=== PATIENT | female | born 1955 | race Two or more races ===

== ENCOUNTER 2022-05-15 19:59 | Inpatient (IN) | payer MEDICARE, OTHER ==
[~2022-05-15] VITALS: Ht 157.5 cm; Wt 49.9 kg
[2022-05-15 21:20] LABS: BASOPHILS % (AUTO) 0.4 % (0.0-2.0); EOSINOPHILS % (AUTO) 0.7 % (0.0-6.0); HEMATOCRIT 40 % (33-45); HEMOGLOBIN 12.8 g/dL (11.5-14.8); LYMPHOCYTES % (AUTO) 17.6 % (20.0-44.0); MEAN CORPUSCULAR HGB CONC 32 g/dl (31.0-36.0); MEAN CORPUSCULAR VOLUME 89 fL (82-100); MONOCYTES % (AUTO) 5.8 % (2.0-12.0); NEUTROPHILS % (AUTO) 75.5 % (43.0-81.0); PLATELET COUNT (AUTO) 232 K/uL (150-450); RED BLOOD CELL COUNT(AUTO) 4.42 MIL/uL (4.0-5.2); WHITE BLOOD COUNT (AUTO) 10.8 K/uL (4.3-11.0)
[2022-05-15 21:21] LABS: LYMPHOCYTES # (AUTO) 1.9 K/uL (0.8-4.8); MONOCYTES # (AUTO) 0.6 K/uL (0.1-1.30); NEUTROPHILS # (AUTO) 8.1 K/uL (1.8-8.9)
--- NOTE | 2022-05-15 21:23 | NUR ---
URINE COLLECTED AND SENT TO LAB
--- NOTE | 2022-05-15 21:28 | NUR ---
COVID SWAB COLLECTED AND SENT TO LAB
[2022-05-15 21:52] LABS: ALANINE AMINOTRANSFERASE 12 U/L (12-78); ALBUMIN 3.8 g/dL (3.4-5.0); ALKALINE PHOSPHATASE 75 U/L (46-116); ASPARTATE AMINOTRANSFERASE 21 U/L (15-37); BILIRUBIN,DIRECT 0.1 mg/dL (0.0-0.2); BILIRUBIN,TOTAL 0.2 mg/dL (0.2-1.0); CARBON DIOXIDE 27 mmol/L (21-32); CHLORIDE 106 mmol/L (98-107); CREATININE 0.8 mg/dL (0.6-1.3); GLUCOSE 96 mg/dL (74-106); POTASSIUM 3.8 mmol/L (3.5-5.1); SODIUM SERUM 141 mmol/L (136-145); TOTAL PROTEIN, SERUM 7.9 g/dL (6.4-8.2); UREA NITROGEN, BLOOD 16 mg/dL (7-18)
[2022-05-15 21:55] LABS: BILIRUBIN,URINE NEGATIVE (NEGATIVE); COLOR,URINE YELLOW (YELLOW); LEUKOCYTE ESTERASE ,URINE 3+ (NEGATIVE); NITRITE, URINE NEGATIVE (NEGATIVE); PROTEIN,URINE NEGATIVE (NEGATIVE); UGLUCOSE NEGATIVE (NEGATIVE); UROBILINOGEN,URINE 0.2 EU/dL (0.2)
[2022-05-15 22:02] LABS: ACETAMINOPHEN < 10 ug/ml (10-30); ALCOHOL, BLOOD < 3 mg/dL (0-0)
[2022-05-15 22:28] LABS: BACTERIA,URINE Many /HPF (None Seen); SQUAMOUS EPITHELIAL CELL,UR Many /HPF (None Seen); WBC,URINE 21-50 /HPF (0-3)
[2022-05-15] MEDS ORDERED: CIPROFLOXACIN HCL 250 MG TABLET PO ONE (23:00)
[2022-05-15] MEDS ORDERED: CIPROFLOXACIN HCL 500 MG TABLET ONE (23:11)
--- NOTE | 2022-05-16 00:55 | NUR ---
REPORT GIVEN TO RN
--- NOTE | 2022-05-16 01:10 | NUR ---
TRANSFERRED TO GPS IN STABLE CONDITION
[2022-05-16 01:25] VITALS: BP 133/66
--- NOTE | 2022-05-16 01:25 | NUR ---
RN NOTE: ADMITTED A 66-Y/O, FEMALE, FROM [facility]. ADMITTED ON A 5150 HOLD FOR GD. PER HOLD, PT ADMITTED DUE TO AGITATION, NON-COMPLIANT AND DISORGANIZED. PT IS NOT ABLE TO PROVIDE FOR HER FOOD, CORRECTION OR CLOTHING. UPON FACE TO FACE EVALUATION, PATIENT IS ALERT AND ORIENTED X2, PATIENT IS ANXIOUS, GUARDED, PREOCCUPIED TO HER OWN THOUGHTS. SKIN ASSESSMENT DONE. ALL BELONGINGS WERE SCREENED FOR CONTRABAND. PATIENT REFUSED TO SIGN ALL ADMITTING/CONSENT PAPER DUE TO CONFUSION. PATIENT'S RIGHTS WERE DISCUSSED AND BOOKLET WAS GIVEN. CONTACTED DR. PALMER AND HOSPITALIST DR. ESCALERA AND INFORMED THEM OF THE ADMISSION. BED IN LOWEST POSITION, LOCKED. SAFETY PRECAUTIONS MAINTAINED. WILL CONTINUE TO MONITOR Q15 MINS FOR MOOD, SAFETY AND BEHAVIOR. WILL INFORM PATIENT'S DAUGHTER IN THE MORNING REGARDING PT'S ADMISSION.
[2022-05-16] MEDS ORDERED: MAGNESIUM HYDROXIDE 30 ML UDC PO PRN ×2 (02:00→10:30)
[2022-05-16] MEDS ORDERED: MAG HYDROX/AL HYDROX/SIMETH 30 ML UDC PO PRN (02:00)
[2022-05-16] MEDS ORDERED: BLOOD SUGAR DIAGNOSTIC 1 EACH STRIP IN ONE (02:00)
[2022-05-16] MEDS ORDERED: TEMAZEPAM 7.5 MG CAPSULE PO PRN (02:00)
[2022-05-16] MEDS ORDERED: LORAZEPAM 0.5 MG TABLET PO PRN (02:00)
[2022-05-16] MEDS ORDERED: CYAN500L3 PO (05:01)
[2022-05-16] MEDS ORDERED: MELA5TAB PO (05:01)
[2022-05-16] MEDS ORDERED: NA P133E RC (05:01)
[2022-05-16] MEDS ORDERED: QUET25TA PO (05:01)
[2022-05-16] MEDS ORDERED: ASPI-1169 PO (05:01)
[2022-05-16] MEDS ORDERED: ATOR40TA PO (05:01)
--- NOTE | 2022-05-16 05:40 | NUR ---
RN NOTE NOTIFIED DR. ESCALERA REGARDING HOME MEDS TO BE RECONCILED.
[2022-05-16 08:00] VITALS: BP 139/74
[2022-05-16 08:02] LABS: CREATININE 0.7 mg/dL (0.6-1.3)
[2022-05-16] MEDS ORDERED: MAGN400O6 PO (08:09)
[2022-05-16] MEDS ORDERED: CYAN100096 PO (08:09)
--- NOTE | 2022-05-16 09:42 | NUR ---
CAROLE Initial Discharge Note: Patient currently resides at [address] [address]; ([phone]). CAROLE contacted Janette malloy to see if pt is welcomed back. She stated she would discuss with the treatment team and let this freelance writer know. CAROLE will contact pt's son Ken ([phone]) to discuss treatment/discharge plan. CAROLE will work with the MD, family, and treatment team to help coordinate appropriate discharge.
--- NOTE | 2022-05-16 09:42 | NUR ---
CAROLE Clinical Note: Pt placed on a 5150 hold for GD. Pt was agitated and non compliant at her facility [facility]. [place] [address]; ([phone]). CAROLE contacted Janette malloy to see if pt is welcomed back. She stated she would discuss with the treatment team and let this technical writer and editor know. CAROLE will contact pt's son Ken ([phone]) to discuss treatment/discharge plan. CAROLE will work with the MD, family, and treatment team to help coordinate appropriate discharge.
--- NOTE | 2022-05-16 09:43 | NUR ---
Treatment Plan: Pt refused to sign treatment plan and was suspicious. She stated "No, No".
--- NOTE | 2022-05-16 09:52 | NUR ---
Facility Contact: CAROLE contacted Alexa malloy from [facility] [address] [place] [address]; ([phone]) who stated that pt is welcomed back.
[2022-05-16] MEDS ORDERED: NA PHOS,M-B/NA PHOS,DI-BA 1 EA ENEMA RC PRN (10:30)
--- NOTE | 2022-05-16 13:07 | NUR ---
CAROLE Family Contact: SW attempted to contact pt's son Ken ([phone]) and left a detailed voicemail of pt's admission.
[2022-05-16 16:00] VITALS: BP 150/61
[2022-05-16] MEDS ORDERED: DIVALPROEX SODIUM 125 MG CAP.SPRINK PO SCH (17:00)
[2022-05-16 20:31] VITALS: BP 107/61
[2022-05-16] MEDS: DIVALPROEX SODIUM 125 MG CAP.SPRINK PO SCH (20:47)
--- NOTE | 2022-05-16 21:46 | NUR ---
Maryuri became very agitated, came out of her room and threw water at me. She was rediredted by Carl, she seemed upset. She was left to calm down. She eventually fell asleep around midnight. Will continue to monitor.
[2022-05-16] MEDS: QUETIAPINE FUMARATE 25 MG TABLET PO SCH (21:48)
[2022-05-16] MEDS: ATORVASTATIN 40 MG TABLET PO SCH (22:30)
[2022-05-17 07:13] LABS: CHOLESTEROL 211 mg/dL (<200); HDL CHOLESTEROL 63 mg/dL (40-60); LDL 138 mg/dL (0-99); TRIGLYCERIDES 134 mg/dL (30-150)
--- NOTE | 2022-05-17 07:20 | NUR ---
RN OPENING NOTE PATIENT IN HER ROOM, AWAKE, ORIENTED. SAFETY MEASURES IN PLACE, WILL CONTINUE TO MONITOR.
[2022-05-17 08:00] VITALS: BP 114/66
[2022-05-17] MEDS ORDERED: DIVALPROEX SODIUM 125 MG CAP.SPRINK PO SCH (09:00)
[2022-05-17] MEDS: DIVALPROEX SODIUM 125 MG CAP.SPRINK PO SCH ×2 (09:44→17:33)
[2022-05-17] MEDS: CYANOCOBALAMIN 500 MCG TABLET PO SCH (09:44)
[2022-05-17] MEDS: ASPIRIN 81 MG TAB.CHEW PO SCH (09:44)
[2022-05-17 16:00] VITALS: BP 105/60
--- NOTE | 2022-05-17 18:48 | NUR ---
RN CLOSING NOTE ALL NEEDS ATTENDED, MEDS ADMINISTERED, PT ALERT, COOPERATIVE. WILL ENDORSE TO THE EPILEPSY PHYSICIAN.
[2022-05-17 20:56] VITALS: BP 129/68
[2022-05-17] MEDS: ATORVASTATIN 40 MG TABLET PO SCH (21:20)
[2022-05-17] MEDS: QUETIAPINE FUMARATE 25 MG TABLET PO SCH (21:21)
[2022-05-18] MEDS: CYANOCOBALAMIN 500 MCG TABLET PO SCH ×2 (07:37→09:00)
[2022-05-18] MEDS: DIVALPROEX SODIUM 125 MG CAP.SPRINK PO SCH ×3 (07:37→17:00)
[2022-05-18] MEDS: ASPIRIN 81 MG TAB.CHEW PO SCH ×2 (07:37→09:00)
[2022-05-18 08:00] VITALS: BP 113/80
--- NOTE | 2022-05-18 09:18 | NUR ---
GPS/RN PT REFUSED AM MEDS OFFERED X3. COMMUNICATED WITH HELP OF BERNARD/ACTIVITY
[2022-05-18 16:00] VITALS: BP 119/63
--- NOTE | 2022-05-18 17:07 | NUR ---
GPS/RN PT REFUSED MEDS OFFERED X3
--- NOTE | 2022-05-18 19:30 | NUR ---
GPS RN NOTE, RECEIVED PATIENT AWAKE AND IN BED, NO S/S OR COMPLAINTS OF PAIN AT THIS TIME. PATIENT IS DISPLAYING NO S/S OF APPARENT DISTRESS AT THIS TIME. PATIENT BREATHING IS UNLABORED WITH EQUAL RISE AND FALL OF THE CHEST. PATIENT IS ALERT AND ORIENTED X 1 ON ROOM AIR WITH A SPO2 96%. PATIENT IS WELSH SPEAKING ONLY. PATIENT IS REFUSING MEDICATIONS, ISOLATIVE, CONFUSED, PARANOID, ARGUMENTATIVE, ANXIOUS, AND UNCOOPERATIVE. PATIENT DENIES SUICIDAL AND HOMICIDAL IDEATIONS AT THIS TIME. PATIENT ASSISTED WITH TURNING AND REPOSITIONING Q2HR AND PRN FOR COMFORT AND CIRCULATION. PATIENT HAS NO NEEDS AT THIS TIME. PATIENT EDUCATED ON THE USE OF THE CALL JONAS. PATIENT BED SIDE RAILS UP X 2 FOR SAFETY. PATIENT BED IS LOCKED AND LOW. WILL CONTINUE TO MONITOR THIS PATIENT Q15 MINUTES WITH THE HELP OF STAFF TO MAINTAIN SAFETY.
[2022-05-18 20:43] VITALS: BP 109/71
[2022-05-18] MEDS: QUETIAPINE FUMARATE 25 MG TABLET PO SCH (21:00)
[2022-05-18] MEDS: ATORVASTATIN 40 MG TABLET PO SCH (21:45)
--- NOTE | 2022-05-18 21:45 | NUR ---
GPS RN NOTE, PATIENT REFUSED SEROQUEL 25MG PO Q2100 AND LIPITOR 40MG PO HS. OFFERED BOTH MEDICATIONS THREE TIMES AND STILL PATIENT REFUSED STATING, " NO, NO, NO ". EDUCATED PATIENT ON THE RISKS AND BENEFITS OF TAKING AND REFUSING SEROQUEL AND LIPITOR. WILL CONTINUE TO MONITOR THIS PATIENT WITH THE HELP OF STAFF.
[2022-05-19 08:00] VITALS: BP 124/65
[2022-05-19] MEDS: CYANOCOBALAMIN 500 MCG TABLET PO SCH (08:31)
[2022-05-19] MEDS: ASPIRIN 81 MG TAB.CHEW PO SCH (08:31)
[2022-05-19] MEDS: DIVALPROEX SODIUM 125 MG CAP.SPRINK PO SCH ×2 (08:31→16:48)
--- NOTE | 2022-05-19 08:31 | NUR ---
GPS/RN PT REFUSED AM MEDS OFFERED X3. COMMUNICATED VIA YURY CAMPBELL
[2022-05-19 16:00] VITALS: BP 114/67
--- NOTE | 2022-05-19 16:48 | NUR ---
GPS/RN PT REFUSED 1700 MEDS OFFERED X3. COMMUNICATED VIA YURY CAMPBELL
--- NOTE | 2022-05-19 19:30 | NUR ---
GPS RN NOTES RECEIVED LAYING ON BED IN HER ROOM,SLEEPING WITH HEAD ON FOOT PART OF THE BED,A/O X2,SPEAK PERSIAN,AMBULATE WITH STEADY GAIT,COOPERATIVE TO CARE,ISOLATIVE AT TIMES.WILL CONTINUE TO MONITOR BEHAVIOR.
[2022-05-19 20:00] VITALS: BP 118/71
[2022-05-19 20:40] VITALS: BP 118/71
[2022-05-19] MEDS: QUETIAPINE FUMARATE 25 MG TABLET PO SCH (20:42)
[2022-05-19] MEDS: ATORVASTATIN 40 MG TABLET PO SCH (20:42)
--- NOTE | 2022-05-19 21:00 | NUR ---
GPS RN NOTES REFUSED SCHEDULED MEDICATION.OFFERED SLEEPING PILL BUR REFUSED
[2022-05-20 08:00] VITALS: BP 143/70
[2022-05-20] MEDS: DIVALPROEX SODIUM 125 MG CAP.SPRINK PO SCH ×2 (09:00→17:00)
[2022-05-20] MEDS: ASPIRIN 81 MG TAB.CHEW PO SCH (09:00)
[2022-05-20] MEDS: CYANOCOBALAMIN 500 MCG TABLET PO SCH (09:00)
[2022-05-20 16:00] VITALS: BP 118/63
[2022-05-20 20:26] VITALS: BP 130/41
[2022-05-20] MEDS: QUETIAPINE FUMARATE 25 MG TABLET PO SCH (21:00)
[2022-05-20] MEDS: ATORVASTATIN 40 MG TABLET PO SCH (21:01)
--- NOTE | 2022-05-20 21:43 | NUR ---
RN NOTE: MEDICATION REFUSAL PATIENT REFUSED SCHEDULED MEDS AT 2200 SEROQUEL AND LIPITOR. DESPITE OF EDUCATION PROVIDED REGARDING THE IMPORTANCE OF MEDICATION COMPLIANCE. PATIENT CONTINUED TO REFUSE. PATIENT STATED IN TURKISH, "SIN MEDICINA, THANK YOU". WILL CONTINUE TO MONITOR.
[2022-05-21 08:00] VITALS: BP 131/58
[2022-05-21] MEDS: CYANOCOBALAMIN 500 MCG TABLET PO SCH (08:35)
[2022-05-21] MEDS: DIVALPROEX SODIUM 125 MG CAP.SPRINK PO SCH ×3 (08:35→17:00)
[2022-05-21] MEDS: ASPIRIN 81 MG TAB.CHEW PO SCH (08:35)
--- NOTE | 2022-05-21 15:22 | NUR ---
RN-CO: SHUN PETITION FILED TODAY BY DR CHAUDHRY.
[2022-05-21 16:00] VITALS: BP 133/74
[2022-05-21 20:25] VITALS: BP 128/67
[2022-05-21] MEDS: QUETIAPINE FUMARATE 25 MG TABLET PO SCH (21:00)
[2022-05-21] MEDS: ATORVASTATIN 40 MG TABLET PO SCH (21:44)
--- NOTE | 2022-05-21 21:45 | NUR ---
REFUSED MEDICATION Patient Alert Oriented x2-3 Understand and speaks some Marshallese. Patient refused night medication Seroquel and Lipitor, education on medication indication and possible side effect, patient verbalized understanding but still refuses.
--- NOTE | 2022-05-22 06:31 | NUR ---
END OF SHIFT REPORT Patient in bed, sleeping arouses easily. Hours of sleep 7. Ambulatory, denies need of help. Non compliant with medication. Plan for continue inpatient MHU hospitalization, Behavior management per Psychiatry. Will endorse to oncoming RN.
[2022-05-22 07:26] LABS: BASOPHILS % (AUTO) 0.3 % (0.0-2.0); EOSINOPHILS % (AUTO) 1.7 % (0.0-6.0); HEMATOCRIT 39 % (33-45); HEMOGLOBIN 12.7 g/dL (11.5-14.8); LYMPHOCYTES # (AUTO) 1.9 K/uL (0.8-4.8); LYMPHOCYTES % (AUTO) 27.3 % (20.0-44.0); MEAN CORPUSCULAR HGB CONC 33 g/dl (31.0-36.0); MEAN CORPUSCULAR VOLUME 89 fL (82-100); MONOCYTES # (AUTO) 0.5 K/uL (0.1-1.30); MONOCYTES % (AUTO) 6.9 % (2.0-12.0); NEUTROPHILS # (AUTO) 4.4 K/uL (1.8-8.9); NEUTROPHILS % (AUTO) 63.8 % (43.0-81.0); PLATELET COUNT (AUTO) 238 K/uL (150-450); RED BLOOD CELL COUNT(AUTO) 4.34 MIL/uL (4.0-5.2); WHITE BLOOD COUNT (AUTO) 6.9 K/uL (4.3-11.0)
[2022-05-22 07:28] LABS: BILIRUBIN,TOTAL 0.1 mg/dL (0.2-1.0); CALCIUM, SERUM 8.6 mg/dL (8.5-10.1); CREATININE 0.8 mg/dL (0.6-1.3); POTASSIUM 4.9 mmol/L (3.5-5.1); TOTAL PROTEIN, SERUM 6.8 g/dL (6.4-8.2)
[2022-05-22 08:00] VITALS: BP 115/68
[2022-05-22] MEDS: CYANOCOBALAMIN 500 MCG TABLET PO SCH (09:00)
[2022-05-22] MEDS: ASPIRIN 81 MG TAB.CHEW PO SCH (09:00)
[2022-05-22] MEDS: DIVALPROEX SODIUM 125 MG CAP.SPRINK PO SCH ×2 (09:00→17:00)
--- NOTE | 2022-05-22 13:59 | NUR ---
Court Notification: SW contacted pt's daughter Zo ([phone]) to notify of 6080 hearing.
--- NOTE | 2022-05-22 14:00 | NUR ---
Court Hearing: Patient's court hearing for 1740 was today and it was upheld for GD.
[2022-05-22 16:29] VITALS: BP 118/75
--- NOTE | 2022-05-22 19:30 | NUR ---
RN NURSE RECEIVED PATIENT SLEEPS IN BED WITH BLANKET COVERING THE FACE. PUT BLANKET BACK UPON CALLING HER NAME. NO DISCOMFORT NOTED. ALL SAFETY MEASURES IN PLACE. BED LOCKED IN THE LOWEST POSITION. TABLE IN EASY REACH.SIDE RAILS UP TIMES 2. WILL CONTINUE TO MONITOR CLOSELY.
[2022-05-22] MEDS: NITROFURANTOIN/MONOHYDRATE MACROCRYSTALS 100 MG CAPSULE PO SCH (20:38)
[2022-05-22] MEDS: QUETIAPINE FUMARATE 25 MG TABLET PO SCH (20:39)
--- NOTE | 2022-05-22 20:40 | NUR ---
RN NOTES PATIENT REFUSED MACROBID AND SEROQUEL FOR 2100 STRONGLY. EDUCATE AND INFORMED THE PATIENT ABOUT BOTH MEDICATIONS. PATIENT STRONGLY REFUSED MEDICATIONS AND WITH POINTING HER INDEX FINGER TO THE DOOR STATED "LEAVE THE ROOM NOW" .
[2022-05-22 20:42] VITALS: BP 140/65
[2022-05-22] MEDS: ATORVASTATIN 40 MG TABLET PO SCH (21:25)
--- NOTE | 2022-05-22 22:00 | NUR ---
RN NOTES PATIENT REFUSED 2200 LIPITOR. EDUCATE AND INFORMED THE PATIENT THE USE OF MEDICATION, STILL REFUSING STRONGLY.
--- NOTE | 2022-05-23 06:44 | NUR ---
RN CLOSING NURSE PATIENT SLEEPS IN BED WITH BLANKET COVERING THE FACE. PUT BLANKET BACK UPON CALLING HER NAME. NO DISCOMFORT NOTED. NO PAIN NOTED. NO SOB NOTED. ALL SAFETY MEASURES IN PLACE. BED LOCKED IN THE LOWEST POSITION. TABLE IN EASY REACH.SIDE RAILS UP TIMES 2. WILL ENDORSE FOR MARGIE.
[2022-05-23 08:00] VITALS: BP 133/96
[2022-05-23] MEDS: ENSURE ENLIVE CHOC 237 ML CAN PO SCH (09:00)
[2022-05-23] MEDS: CYANOCOBALAMIN 500 MCG TABLET PO SCH (09:55)
[2022-05-23] MEDS: NITROFURANTOIN/MONOHYDRATE MACROCRYSTALS 100 MG CAPSULE PO SCH ×2 (09:55→18:58)
[2022-05-23] MEDS: ASPIRIN 81 MG TAB.CHEW PO SCH (09:55)
[2022-05-23] MEDS: DIVALPROEX SODIUM 125 MG CAP.SPRINK PO SCH ×2 (09:56→16:46)
--- NOTE | 2022-05-23 10:08 | NUR ---
RN NOTES RECEIVED PT IN BED ASLEEP , EASY TO AROUSE, ALL 4 WHEELS LOCKED AND ALL SAFETY MEASURES IN PLACE, PT REFUSED MEDICATIONS WHOLE PO THEREFORE MEDICATIONS CRUSHED AND MIXED WITH FOOD, EDUCATED ON IMPORTANCE OF TAKING MEDICATIONS AND REASONING WHY ALWAYS REFUSING HAS CONSEQUENCES, ATE THE FOOD WITH THE MEDICATIONS NO ASPIRATIONS AND WILL MONITOR FOR ANY SIDE EFFECTS WITH THE ABT OF THE MACROBID 100MG PO MED AT THIS TIME.
--- NOTE | 2022-05-23 13:58 | NUR ---
RN-CO: CALLED COURT 95 TO FIND OUT THE TIME OF RICHRISTIAN HEARING TOMM, OF THIS TIME IT IS CLOSE.
--- NOTE | 2022-05-23 14:05 | NUR ---
RN-CO: SPOKE WITH JASMEET AT COURT 95 THE RIESE HEARING FOR EMELYN WILL BE TOMORROW AT 1530. DR CHAUDHRY MADE AWARE.
[2022-05-23 16:00] VITALS: BP 128/71
[2022-05-23] MEDS: QUETIAPINE FUMARATE 25 MG TABLET PO SCH (18:58)
--- NOTE | 2022-05-23 19:08 | NUR ---
RN NOTES PT REFUSED ALL PO MEDICATIONS DURING DAY SHIFT UNLESS CRUSHED WITH EITHER MEAL FOOD OR THE VANILLA OR CHOCOLATE PUDDING, LAST TWO MEDICATIONS GIVEN CRUSHED WITH PUDDDING, NO ASPIRATIONS NOTED, NO SOB , NO C/O PAIN COMPLIANT WITH CARE AND EDUCATED IMPORTANCE OF MEDICATIONS AND THE SIDE EFFECTS TO EACH ONE, ALL NEEDS TENDED TO IN A TIMELY MANNER, BED LOW TO FLOOR, ALL WHEELS LOCKED.
--- NOTE | 2022-05-23 19:30 | NUR ---
Pt. was verbally endorsed by off going DANE MEHTA. Pt. received lying in bed. head at foot of bed with covers over her head. Inital assessment rendered. Bed in low position with brakes intact. Pt. resistant to interaction. Dismissive. Monitored for acute distress, VS , and acute mental status changes.
[2022-05-23 20:00] VITALS: BP 142/68
[2022-05-23 20:33] VITALS: BP 142/68
--- NOTE | 2022-05-23 22:00 | NUR ---
Pt. refused to take anticholersterol meds tonight. Said " no more medicine".
[2022-05-23] MEDS: ATORVASTATIN 40 MG TABLET PO SCH ×2 (23:20→23:23)
--- NOTE | 2022-05-24 07:28 | NUR ---
Endorsed to oncoming shift injury free. Bed in low position. 2 siderails up. brakes intact on bed.
[2022-05-24 08:00] VITALS: BP 105/65
[2022-05-24] MEDS: CYANOCOBALAMIN 500 MCG TABLET PO SCH (09:00)
[2022-05-24] MEDS: DIVALPROEX SODIUM 125 MG CAP.SPRINK PO SCH ×3 (09:00→17:32)
[2022-05-24] MEDS: ASPIRIN 81 MG TAB.CHEW PO SCH (09:00)
[2022-05-24] MEDS: NITROFURANTOIN/MONOHYDRATE MACROCRYSTALS 100 MG CAPSULE PO SCH ×2 (09:00→21:30)
[2022-05-24] MEDS: OLANZAPINE 2.5 MG TABLET PO SCH ×2 (13:00→21:30)
--- NOTE | 2022-05-24 13:30 | NUR ---
GPS RN DAYSHIFT UPDATE NOTE Patient refused all PO medications this morning stating that she is not sick and does not need medication. Dr. Gtz typed in order to give zyprexa 2mg IM if patient again refuses PO zyprexa. Patient again refused zyprexa PO even after explaining the new injection order to her. IM injection given per permission of court order approval (5250) of Dr. Gtz's order. Will continue to monitor patient for safey and care for patient per MD POC.
[2022-05-24] MEDS: OLANZAPINE 10 MG VIAL IM PRN ×2 (13:40→22:09)
[2022-05-24 16:00] VITALS: BP 99/71
[2022-05-24 20:26] VITALS: BP 118/62
--- NOTE | 2022-05-24 20:30 | NUR ---
GPS RN OPENING NOTE RECEIVED PATIENT IN BED RESTING; ALERT AND ORIENTED X 1 - 2; GREENLANDIC SPEAKING; STABLE ON ROOM AIR, BREATHING EVENLY AND NO RESPIRATORY DISTRESS NOTED; WITHDRAWN; NO COMPLAINTS OF PAIN AND DISCOMFORT AT THIS TIME; SAFETY MEASURES IMPLEMENTED, BED IN LOW AND LOCKED POSITION, SIDE RAILS UP X 2, CALL LIGHT WITHIN REACH; WILL CONTINUE TO MONITOR EVERY 15 MINS WITH THE HELP OF OTHER STAFF TO MAINTAIN SAFETY THROUGHOUT SHIFT
--- NOTE | 2022-05-24 23:30 | NUR ---
GPS RN NOTE PATIENT REFUSED HER ORAL MEDICATIONS, NOTED TO BE AGGRESSIVE AND COMBATIVE TOWARD STAFFS; PATIENT WAS CURSING, SPEAKING BAD LANGUAGES, EVEN THROWING WATER AND OTHER THINGS TO STAFFS; ADMINISTERED ZYPREXA IM WITH THE HELP OF CHARGE NURSE, SECURITY AND ANOTHER RN. REMOVED THINGS OUT OF THE ROOM NECESSARY FOR SAFETY; PATIENT IS NOW RELAXED AND SLEEPING IN BED; WILL CONTINUE TO MONITOR
--- NOTE | 2022-05-25 06:23 | NUR ---
GPS RN NOTE PATIENT SLEPT COMFORTABLY THE WHOLE NIGHT; NO COMPLAINTS OF PAIN AND DISCOMFORT AT THIS TIME; NO DISTRESS NOTED; MEDICALLY STABLE; WILL ENDORSE TO AM NURSE FOR MARGIE.
[2022-05-25 08:00] VITALS: BP 119/65
[2022-05-25] MEDS: CYANOCOBALAMIN 500 MCG TABLET PO SCH ×2 (08:46→09:00)
[2022-05-25] MEDS: ASPIRIN 81 MG TAB.CHEW PO SCH ×2 (08:46→09:00)
[2022-05-25] MEDS: NITROFURANTOIN/MONOHYDRATE MACROCRYSTALS 100 MG CAPSULE PO SCH ×3 (08:46→21:00)
[2022-05-25] MEDS: DIVALPROEX SODIUM 125 MG CAP.SPRINK PO SCH ×3 (08:46→17:00)
[2022-05-25] MEDS: ENSURE ENLIVE CHOC 237 ML CAN PO SCH (08:47)
[2022-05-25] MEDS: OLANZAPINE 2.5 MG TABLET PO SCH ×2 (09:00→21:00)
--- NOTE | 2022-05-25 09:07 | NUR ---
RN NOTES PATIENT REFUSED ALL MORNING MEDICATIONS. EDUCATE AND INFORMED THE PATIENT ABOUT RISKS. APPROACHED PATIENT 3X. PATIENT STRONGLY REFUSED MEDICATIONS. WILL MONITOR.
[2022-05-25] MEDS: OLANZAPINE 10 MG VIAL IM PRN ×2 (09:28→22:00)
--- NOTE | 2022-05-25 09:30 | NUR ---
RN NOTES ZYPREXIA IM ADMINNISTERED ORDERED, PATIENT REFUSED ZYPREXIA ORAL. WILL MONITOR.
[2022-05-25 16:00] VITALS: BP 114/63
--- NOTE | 2022-05-25 19:04 | NUR ---
RN NOTES PATIENT IN BED RESTING; ALERT AND ORIENTED X 1 - 2; UKRAINIAN SPEAKING; STABLE ON ROOM AIR, BREATHING EVENLY AND NO RESPIRATORY DISTRESS NOTED; WITHDRAWN; NO COMPLAINTS OF PAIN AND DISCOMFORT AT THIS TIME; SAFETY MEASURES IMPLEMENTED, BED IN LOW AND LOCKED POSITION, SIDE RAILS UP X 2, CALL LIGHT WITHIN REACH; WILL ENDORSED TO NIGHT NURSE.
[2022-05-25 20:42] VITALS: BP 116/64
[2022-05-25] MEDS: ATORVASTATIN 40 MG TABLET PO SCH (21:50)
--- NOTE | 2022-05-25 21:51 | NUR ---
RN notes Pt refuses pm meds. Explained risks and benefits. Pt keep refusing meds. Pt informed that Pt doesn't take any meds, Medications makes her upset stomach. Pt is aware that Pt is on [place]. Charge nurse is aware and informed.
--- NOTE | 2022-05-25 22:00 | NUR ---
RN notes Pt refuses oral zyprexa. Explained risks and benefits. Pt keep refusing. Pt is aware and informed about zyprexa IM inj. Administered zyprexa 5 mg/IM with a charge nurse at the bedside. Will continue to monitor.
[2022-05-26 08:00] VITALS: BP 120/58
[2022-05-26] MEDS: ASPIRIN 81 MG TAB.CHEW PO SCH (09:00)
[2022-05-26] MEDS: NITROFURANTOIN/MONOHYDRATE MACROCRYSTALS 100 MG CAPSULE PO SCH ×2 (09:00→21:00)
[2022-05-26] MEDS: OLANZAPINE 2.5 MG TABLET PO SCH ×2 (09:00→21:00)
[2022-05-26] MEDS: CYANOCOBALAMIN 500 MCG TABLET PO SCH (09:00)
[2022-05-26] MEDS: DIVALPROEX SODIUM 125 MG CAP.SPRINK PO SCH ×2 (09:00→16:37)
[2022-05-26] MEDS: ENSURE ENLIVE CHOC 237 ML CAN PO SCH (09:00)
[2022-05-26] MEDS: OLANZAPINE 10 MG VIAL IM PRN ×2 (10:11→22:10)
--- NOTE | 2022-05-26 10:24 | NUR ---
RN-NOTES PATIENT REFUSED ALL 0900AM MP.O MEDICATIONS INCLUDING ZYPREXA 5MG P.O .EXPLAINED RISK AND BENEFITS BUT PATIENT GETS AGITATED ,ARGUMENTATIVE AND ANGRY. ZYPREXA 5MG IM GIVEN ORDERED.
[2022-05-26 16:00] VITALS: BP 125/60
--- NOTE | 2022-05-26 16:38 | NUR ---
RN-NOTES PATIENT REFUSED DEPAKOTE 125MG P.O .EXPLAINED RISK AND BENEFITS BUT PATIENT GETS AGITATED ,ARGUMENTATIVE AND ANGRY.
--- NOTE | 2022-05-26 17:33 | NUR ---
RN-NOTES PATIENT IS VISIBLE IN THE UNIT A/O X2 GUARDED NO ACUTE DISTRESS NOTED. PATIENT REFUSED ALL P.O MEDICATIONS DESPITE ENCOURAGEMENT.IM MEDICATION GIVEN PATIENT IS RIESED. NOTED WITH EASILY ANGRY,ARGUMENTATIVE GUARDED,MINIMAL INTERACTIONS WITH STAFF.NEEDS MINIMAL ASSIST WITH ADL'S. ALL NEEDS ATTENDED AND ANTICIPATED. PATIENT ABLE TO AMBULATE WITH STEADY GAIT.WILL CONT. MONITORING FOR SAFETY AND BEHAVIOR.WILL ENDORSE TO INCOMING NURSE FOR THE CONTINUITY OF CARE.
[2022-05-26 21:14] VITALS: BP 126/52
[2022-05-26] MEDS: ATORVASTATIN 40 MG TABLET PO SCH (22:00)
--- NOTE | 2022-05-26 22:10 | NUR ---
RN notes Pt is refusing pm med and oral zyprexa. Explained risks and benefits. Pt keep refusing and agitated easily. Administered zyprexa IM inj as ordered. Charge nurse at the bedside. Safety precautions is maintained. Will continue to monitor.
[2022-05-27 08:00] VITALS: BP 114/50
[2022-05-27] MEDS: OLANZAPINE 2.5 MG TABLET PO SCH ×5 (08:49→17:00)
[2022-05-27] MEDS: CYANOCOBALAMIN 500 MCG TABLET PO SCH (09:00)
[2022-05-27] MEDS: ENSURE ENLIVE CHOC 237 ML CAN PO SCH (09:00)
[2022-05-27] MEDS: DIVALPROEX SODIUM 125 MG CAP.SPRINK PO SCH ×2 (09:00→17:00)
[2022-05-27] MEDS: ASPIRIN 81 MG TAB.CHEW PO SCH (09:00)
[2022-05-27] MEDS: NITROFURANTOIN/MONOHYDRATE MACROCRYSTALS 100 MG CAPSULE PO SCH ×2 (09:00→21:00)
--- NOTE | 2022-05-27 09:25 | NUR ---
GPS/RN PT REFUSED PO MEDS TODAY OFFERED X3. ZYPREXA IM ADMINISTERED ORDERED.
[2022-05-27] MEDS: OLANZAPINE 10 MG VIAL IM PRN ×3 (09:46→17:20)
--- NOTE | 2022-05-27 10:50 | NUR ---
RN- NOTES OLANZAPINE 5MG HELD DUE TO PATIENT REFUSAL OF PREVIOUS 0900 MEDICATION AND ZYPREXA INJECTION PER RIESE INSTRUCTIONS GIVEN.
--- NOTE | 2022-05-27 13:09 | NUR ---
RN- NOTES IM ZYPREXA 5MG ADMINISTERED DUE TO PATIENT REFUSING OLANZAPINE P.O X3 TIME AFTER EXPLANATION AND EDUCATION.
[2022-05-27 16:00] VITALS: BP 141/61
--- NOTE | 2022-05-27 17:16 | NUR ---
RN- NOTES IM ZYPREXA 5MG ADMINISTERED DUE TO PATIENT REFUSING OLANZAPINE P.O X3 TIME AFTER EXPLANATION AND EDUCATION.
--- NOTE | 2022-05-27 18:23 | NUR ---
RN- CLOSING NOTES PATIENT AWAKE IN BED, WORKING ON CROSSWORD PUZZLES. A/O X2. PT. IS GUARDED, ANXIOUS, ISOLATIVE, AND EASILY AGITATED. PATIENT REFUSED ALL ORAL MEDICATIONS THROUGHOUT THE SHIFT. IM ZYPREXA ADMINISTERED AT 0900, 1300, 1700 PER RIESE ORDER. PATIENT IS AMBULATORY WITH NO ASSISTANCE AND DENIES SI/HI AT THIS TIME. WILL CONTINUE TO MONITOR Q 15 MINUTES FOR SAFETY AND BEHAVIOR.
[2022-05-27 20:30] VITALS: BP 105/60
[2022-05-27] MEDS: ATORVASTATIN 40 MG TABLET PO SCH (21:52)
--- NOTE | 2022-05-28 07:24 | NUR ---
GPS RN OPENING NOTES: RECEIVED PATIENT IN BED, ASLEEP BUT EASILY AROUSES TO VOICE. NO RESPIRATORY DISTRESS NOTED, BREATHING EVEN AND UNLABORED. ON RA TOLERATING WELL. PATIENT IS ALERT, ORIENTED X 2, OCCITAN SPEAKING. PATIENT IS GUARDED, EASILY IRRITATED, ISOLATIVE. PATIENT DENIES SI/HI AT THIS TIME. ALL SAFETY MEASURES IN PLACE, WILL CONTINUE TO MONITOR Q 15 MINUTES FOR SAFETY AND BEHAVIOR.
[2022-05-28 08:00] VITALS: BP 115/56
[2022-05-28] MEDS: CYANOCOBALAMIN 500 MCG TABLET PO SCH (09:00)
[2022-05-28] MEDS: ASPIRIN 81 MG TAB.CHEW PO SCH (09:00)
[2022-05-28] MEDS: ENSURE ENLIVE CHOC 237 ML CAN PO SCH (09:00)
[2022-05-28] MEDS: OLANZAPINE 2.5 MG TABLET PO SCH ×3 (09:00→17:00)
[2022-05-28] MEDS: DIVALPROEX SODIUM 125 MG CAP.SPRINK PO SCH ×2 (09:00→17:00)
[2022-05-28] MEDS: NITROFURANTOIN/MONOHYDRATE MACROCRYSTALS 100 MG CAPSULE PO SCH ×2 (09:00→22:12)
[2022-05-28] MEDS: OLANZAPINE 10 MG VIAL IM PRN ×3 (10:17→18:08)
[2022-05-28 16:00] VITALS: BP 125/58
--- NOTE | 2022-05-28 18:24 | NUR ---
GPS RN CLOSING NOTES: PATIENT IN BED, AWAKE AND IS DOING HER WORD PUZZLES. NO RESPIRATORY DISTRESS NOTED THROUGHOUT SHIFT. ON RA TOLERATING WELL. PATIENT IS ALERT, ORIENTED X 2, ROMANSH SPEAKING. PATIENT REMAINS GUARDED, EASILY IRRITATED, ISOLATIVE AND REMAINS IN THE ROOM MOST OF THE TIME. PATIENT REFUSED ALL HER PO MEDICATIONS AND ADMINISTERED ZYPREXA IM TID ORDERED DUE TO PATIENT BEING ON RIESE. PATIENT WAS COOPERATIVE WITH THE ZYPREXA ADMINISTERED VIA IM. PATIENT DENIES SI/HI AT THIS TIME. ALL SAFETY MEASURES IMPLEMENTED, WILL ENDORSE TO INCOMING NURSE FOR CONTINUITY OF CARE.
[2022-05-28 20:24] VITALS: BP 127/65
[2022-05-28] MEDS: ATORVASTATIN 40 MG TABLET PO SCH (22:12)
[2022-05-29 08:00] VITALS: BP 101/49
[2022-05-29] MEDS: OLANZAPINE 2.5 MG TABLET PO SCH ×4 (08:36→17:00)
[2022-05-29] MEDS: ASPIRIN 81 MG TAB.CHEW PO SCH ×2 (08:36→09:00)
[2022-05-29] MEDS: DIVALPROEX SODIUM 125 MG CAP.SPRINK PO SCH ×3 (08:36→17:00)
[2022-05-29] MEDS: CYANOCOBALAMIN 500 MCG TABLET PO SCH ×2 (08:36→09:00)
[2022-05-29] MEDS: NITROFURANTOIN/MONOHYDRATE MACROCRYSTALS 100 MG CAPSULE PO SCH ×3 (08:39→21:00)
[2022-05-29] MEDS: ENSURE ENLIVE CHOC 237 ML CAN PO SCH (09:14)
[2022-05-29] MEDS: OLANZAPINE 10 MG VIAL IM PRN ×3 (09:29→17:23)
--- NOTE | 2022-05-29 13:34 | NUR ---
WAGON WINDER NOTES: PATIENT IN BED, AWAKE AND IS DOING WORD PUZZLES. NO RESPIRATORY DISTRESS NOTED THROUGHOUT SHIFT. ON ROOM AIR TOLERATING WELL. PATIENT IS ALERT, ORIENTED X 2, SETS[place] SPEAKING. PATIENT REMAINS GUARDED, EASILY IRRITATED, ISOLATIVE AND REMAINS IN THE ROOM MOST OF THE TIME. PATIENT REFUSED ALL HER PO MEDICATIONS AND ADMINISTERED ZYPREXA IM TID ORDERED DUE TO PATIENT BEING ON RIESE. PATIENT WAS COOPERATIVE WITH THE ZYPREXA ADMINISTERED VIA IM. PATIENT DENIES SI/HI AT THIS TIME. ALL SAFETY MEASURES IMPLEMENTED, WILL CONTINUE TO MONITOR
[2022-05-29 16:00] VITALS: BP 114/56
[2022-05-29 20:29] VITALS: BP 116/59
[2022-05-29] MEDS: ATORVASTATIN 40 MG TABLET PO SCH (21:26)
--- NOTE | 2022-05-30 05:51 | NUR ---
END OF SHIFT REPORT Patient in bed, sleeping arouses easily. Denies bladder discomfort, On Abx for UTI. Afebrile. Patient non compliant with treatment and medication. Calm, no agitated behavior during the shift. Still refuses medication, patient is Riesed. On Zyprexa IM PRN. Fall precaution maintained. Plan for Continue inpatient MHU hospitalization. Behavior management per psychiatry. Will endorse to oncoming RN.
[2022-05-30 07:14] LABS: BASOPHILS % (AUTO) 0.6 % (0.0-2.0); EOSINOPHILS % (AUTO) 2.2 % (0.0-6.0); HEMATOCRIT 36 % (33-45); HEMOGLOBIN 11.6 g/dL (11.5-14.8); LYMPHOCYTES # (AUTO) 2.6 K/uL (0.8-4.8); LYMPHOCYTES % (AUTO) 36.6 % (20.0-44.0); MEAN CORPUSCULAR HGB CONC 32 g/dl (31.0-36.0); MEAN CORPUSCULAR VOLUME 89 fL (82-100); MONOCYTES # (AUTO) 0.5 K/uL (0.1-1.30); MONOCYTES % (AUTO) 7.2 % (2.0-12.0); NEUTROPHILS # (AUTO) 3.8 K/uL (1.8-8.9); NEUTROPHILS % (AUTO) 53.4 % (43.0-81.0); PLATELET COUNT (AUTO) 254 K/uL (150-450); RED BLOOD CELL COUNT(AUTO) 4.04 MIL/uL (4.0-5.2)
[2022-05-30 08:00] VITALS: BP 142/68
[2022-05-30 08:01] LABS: POTASSIUM 4.2 mmol/L (3.5-5.1)
[2022-05-30 08:02] LABS: BILIRUBIN,TOTAL 0.2 mg/dL (0.2-1.0); CALCIUM, SERUM 8.7 mg/dL (8.5-10.1); CREATININE 0.7 mg/dL (0.6-1.3); TOTAL PROTEIN, SERUM 6.6 g/dL (6.4-8.2)
[2022-05-30] MEDS: NITROFURANTOIN/MONOHYDRATE MACROCRYSTALS 100 MG CAPSULE PO SCH ×2 (09:00→21:00)
[2022-05-30] MEDS: DIVALPROEX SODIUM 125 MG CAP.SPRINK PO SCH ×3 (09:00→17:00)
[2022-05-30] MEDS: ENSURE ENLIVE CHOC 237 ML CAN PO SCH (09:00)
[2022-05-30] MEDS: OLANZAPINE 2.5 MG TABLET PO SCH (09:00)
[2022-05-30] MEDS: CYANOCOBALAMIN 500 MCG TABLET PO SCH (09:00)
[2022-05-30] MEDS: ASPIRIN 81 MG TAB.CHEW PO SCH (09:00)
[2022-05-30] MEDS: risperiDONE-M 0.5 MG TAB.RAPDIS PO SCH ×2 (13:00→17:00)
[2022-05-30] MEDS: OLANZAPINE 10 MG VIAL IM PRN ×2 (13:51→17:16)
--- NOTE | 2022-05-30 13:52 | NUR ---
Patient refused oral medications. Zyprexia, 1 ml, IV, TID was given as prescribed Addendum: 05/30/22 at 1847 by ALEKSEY PA JR, RN CORRECTION ON CHARTING: Zyprexia 0.5 mg/ML was given and not 1 mL, IV TID STATED ABOVEl
[2022-05-30 16:00] VITALS: BP 108/68
--- NOTE | 2022-05-30 17:16 | NUR ---
Zyprexia 0.5 mg/ML was given, IV, TID
[2022-05-30 20:44] VITALS: BP 110/53
[2022-05-30] MEDS: ATORVASTATIN 40 MG TABLET PO SCH (22:00)
--- NOTE | 2022-05-30 22:33 | NUR ---
RN NOTE PT REFUSED MEDICATIONS SCHEDULED FOR THE NIGHT: MACROBID 100 MG, LIPITOR 40 MG. EXPLAINED RISK/BENEFITS, PT CONTINUED TO REFUSE, STATES "NO MEDICINA".
--- NOTE | 2022-05-31 07:39 | NUR ---
GPS RN CLOSING NOTES PT IN BED AT THIS TIME. A/O X2, NIGERIEN SPEAKING, COOPERATIVE BUT NON COMPLIANT WITH MEDS LAST NIGHT. CALM AND STAYED IN BEDROOM ALL NIGHT. DENIES SI/HI. WILL ENDORSE MARGIE TO DAY SHIFT NURSE.
[2022-05-31 08:00] VITALS: BP 119/63
[2022-05-31] MEDS: risperiDONE-M 0.5 MG TAB.RAPDIS PO SCH ×3 (09:00→17:00)
[2022-05-31] MEDS: DIVALPROEX SODIUM 125 MG CAP.SPRINK PO SCH ×3 (09:00→17:00)
[2022-05-31] MEDS: ASPIRIN 81 MG TAB.CHEW PO SCH (09:00)
[2022-05-31] MEDS: CYANOCOBALAMIN 500 MCG TABLET PO SCH (09:00)
[2022-05-31] MEDS: NITROFURANTOIN/MONOHYDRATE MACROCRYSTALS 100 MG CAPSULE PO SCH ×3 (09:00→21:03)
[2022-05-31] MEDS: ENSURE ENLIVE CHOC 237 ML CAN PO SCH (09:01)
[2022-05-31] MEDS: OLANZAPINE 10 MG VIAL IM PRN ×3 (09:03→17:07)
[2022-05-31 16:00] VITALS: BP 103/62
--- NOTE | 2022-05-31 18:22 | NUR ---
IRRIGATOR VALVE PIPE NOTE PATIENT REFUSED ALL MEDICATIONS. PATIENT IS RIESED AND WAS GIVEN ZYPREXA TID PER EACH REFUSAL OF RISPERDAL- M. PATIENT AOX2, AND PARTICIPATED IN ACTIVITY ROOM DOING WORD SEARCH PUZZLES AND WATCHING TV. PATIENT KEEPS TO HERSELF AND AVOIDS INTERACTION IF POSSIBLE.
[2022-05-31 20:34] VITALS: BP 104/47
[2022-05-31] MEDS: ATORVASTATIN 40 MG TABLET PO SCH ×2 (21:03→22:00)
--- NOTE | 2022-05-31 21:39 | NUR ---
RN NOTES; PATIENT REFUSED 2100-MACROBID 100MG AND 2200-ATORVASTATIN 40MG,EXPLAINED BENEFITS X3,PT STILL REFUSED.
[2022-06-01 08:00] VITALS: BP 124/63
[2022-06-01] MEDS: ASPIRIN 81 MG TAB.CHEW PO SCH (08:20)
[2022-06-01] MEDS: ENSURE ENLIVE CHOC 237 ML CAN PO SCH (08:20)
[2022-06-01] MEDS: NITROFURANTOIN/MONOHYDRATE MACROCRYSTALS 100 MG CAPSULE PO SCH ×2 (08:20→21:00)
[2022-06-01] MEDS: DIVALPROEX SODIUM 125 MG CAP.SPRINK PO SCH ×3 (08:20→16:32)
[2022-06-01] MEDS: CYANOCOBALAMIN 500 MCG TABLET PO SCH (08:21)
[2022-06-01] MEDS: risperiDONE-M 0.5 MG TAB.RAPDIS PO SCH (08:21)
--- NOTE | 2022-06-01 08:27 | NUR ---
RN- NOTES PATIENT REFUSED ALL P.O 0900 MEDICATIONS, EDUCATED ON RISKS/BENEFITS, PATIENT CONTINUES TO REFUSE.
[2022-06-01] MEDS ORDERED: MISCELLANEOUS MED 1 EA EA XX ONE (09:30)
[2022-06-01] MEDS ORDERED: PALIPERIDONE PALMITATE 156 MG/ML SYRINGE IM ONE (11:00)
[2022-06-01 16:00] VITALS: BP 119/53
--- NOTE | 2022-06-01 18:11 | NUR ---
RN- CLOSING NOTES PATIENT IS RESTING IN BED, BREATHING EVEN AND NON LABORED WITH NO S/S OF DISTRESS. PATIENT REFUSED ALL P.O MEDICATION BUT WAS COMPLIANT WITH IM INJECTION. PATIENT IS GUARDED, QUIET, AND ISOLATIVE. AMBULATORY WITH WALKER. DENIES SI/HI AT THIS TIME. WILL CONTINUE TO MONITOR Q 15 MINUTES FOR SAFETY AND BEHAVIOR.
[2022-06-01 20:00] VITALS: BP 123/68
[2022-06-01] MEDS: ATORVASTATIN 40 MG TABLET PO SCH (21:36)
--- NOTE | 2022-06-01 21:37 | NUR ---
RN NOTES; PATIENT REFUSED ALL DUE MEDS,EXPLAINED BENEFITS X3,STILL REFUSED.
[2022-06-02 08:00] VITALS: BP 100/60
[2022-06-02] MEDS: risperiDONE-M 0.5 MG TAB.RAPDIS PO SCH ×3 (08:00→17:00)
[2022-06-02] MEDS: ASPIRIN 81 MG TAB.CHEW PO SCH (08:27)
[2022-06-02] MEDS: DIVALPROEX SODIUM 125 MG CAP.SPRINK PO SCH ×3 (08:27→17:00)
[2022-06-02] MEDS: NITROFURANTOIN/MONOHYDRATE MACROCRYSTALS 100 MG CAPSULE PO SCH ×2 (08:28→21:00)
[2022-06-02] MEDS: CYANOCOBALAMIN 500 MCG TABLET PO SCH (08:28)
[2022-06-02] MEDS: ENSURE ENLIVE CHOC 237 ML CAN PO SCH (08:28)
[2022-06-02] MEDS ORDERED: OLANZAPINE 10 MG VIAL IM PRN (09:00)
[2022-06-02 16:00] VITALS: BP 113/56
--- NOTE | 2022-06-02 19:20 | NUR ---
RN notes Received Pt from morning nurse. Pt is sitting in bed comfortably. Pt is alert and orientedX2, calm, disorganized, guarded and non compliant with med. Pt speaks Kazakh and able to make needs known. VS is stable. On room air. No SOB. No S/S of distress noted. ambulates with a steady gait. Pt denies SI/HI at this time. Reality orientation provided. Snacks is offered. Safety precautions is maintained. Will continue to monitor Q 15 mins checks for safety and behavior.
[2022-06-02 20:00] VITALS: BP 101/71
[2022-06-02] MEDS: ATORVASTATIN 40 MG TABLET PO SCH (21:08)
--- NOTE | 2022-06-02 21:09 | NUR ---
RN notes Pt refuses PM meds microbid and atorvastatin. Explained risks and benefits. Pt stated "No!". Offered several times. Will continue to monitor.
[2022-06-03 08:00] VITALS: BP 149/73
[2022-06-03] MEDS: ASPIRIN 81 MG TAB.CHEW PO SCH (08:46)
[2022-06-03] MEDS: risperiDONE-M 0.5 MG TAB.RAPDIS PO SCH ×2 (08:46→17:00)
[2022-06-03] MEDS: NITROFURANTOIN/MONOHYDRATE MACROCRYSTALS 100 MG CAPSULE PO SCH ×2 (08:46→21:00)
[2022-06-03] MEDS: DIVALPROEX SODIUM 125 MG CAP.SPRINK PO SCH ×3 (08:46→17:00)
[2022-06-03] MEDS: CYANOCOBALAMIN 500 MCG TABLET PO SCH (08:46)
[2022-06-03] MEDS: ENSURE ENLIVE CHOC 237 ML CAN PO SCH (11:00)
[2022-06-03 16:00] VITALS: BP 132/69
--- NOTE | 2022-06-03 17:22 | NUR ---
GPS/RN PT REFUSED ALL MEDS THROUGHOUT THE SHIFT. MULTIPLE ATTEMPTS WERE MADE. NO SI/HI NOTED
[2022-06-03] MEDS: ATORVASTATIN 40 MG TABLET PO SCH (21:05)
--- NOTE | 2022-06-03 21:07 | NUR ---
RN NOTE: MEDICATION REFUSAL PATIENT REFUSED SCHEDULED MEDS FOR TONIGHT MACROBID AND LIPITOR. DESPITE OF EDUCATION PROVIDED REGARDING THE IMPORTANCE OF MEDICATION COMPLIANCE. PATIENT CONTINUED TO REFUSE. PATIENT STATED IN SURINAMESE, "SIN MEDICINA, THANK YOU". WILL CONTINUE TO MONITOR.
[2022-06-03 21:32] VITALS: BP 138/77
--- NOTE | 2022-06-03 22:30 | NUR ---
risk mgr notes got report from another nurse and checked the patient , i saw in her bed covered with blanket , I also asked her if she can take her medication for tonight and at the same time educate her why she needs it . offered also her snacks. Pt states that "no medecina but she's asking for juice and crackers. No signs of agitation or any discomfort. will continue monitoring.
[2022-06-04 08:00] VITALS: BP 113/78
[2022-06-04] MEDS: DIVALPROEX SODIUM 125 MG CAP.SPRINK PO SCH ×3 (09:00→17:00)
[2022-06-04] MEDS: NITROFURANTOIN/MONOHYDRATE MACROCRYSTALS 100 MG CAPSULE PO SCH ×2 (09:00→21:00)
[2022-06-04] MEDS: risperiDONE-M 0.5 MG TAB.RAPDIS PO SCH ×2 (09:00→17:00)
[2022-06-04] MEDS: ASPIRIN 81 MG TAB.CHEW PO SCH (09:00)
[2022-06-04] MEDS: CYANOCOBALAMIN 500 MCG TABLET PO SCH (09:00)
--- NOTE | 2022-06-04 09:00 | NUR ---
PRODUCT SAFETY EXPERT NOTE PATIENT REFUSED 0900 MEDS.
[2022-06-04] MEDS: ENSURE ENLIVE CHOC 237 ML CAN PO SCH (09:06)
--- NOTE | 2022-06-04 12:08 | NUR ---
DIRECTOR COMMERCIAL SALES NOTE PATIENT REFUSED 1300 MEDS.
--- NOTE | 2022-06-04 13:37 | NUR ---
Court Notification: SW attempted to contact pt's son Ken ([phone]) to notify of 30 day hold.
--- NOTE | 2022-06-04 13:38 | NUR ---
Court Hearing: Patient's court hearing for 30day was today and it was upheld for GD.
[2022-06-04 16:00] VITALS: BP 113/59
--- NOTE | 2022-06-04 18:15 | NUR ---
PAIRER NOTE PATIENT REFUSED ALL PO MEDICATIONS. PATIENT SPENT MAJORITY OF THE DAY IN THE ACTIVITY ROOM. PATIENT IS NO LONGER STAYING IN HER ROOM ISOLATED, AND IS ENGAGING IN CONVERSATION AND BEING POLITE.
[2022-06-04 19:54] VITALS: BP 167/76
[2022-06-04] MEDS: ATORVASTATIN 40 MG TABLET PO SCH (21:36)
--- NOTE | 2022-06-04 22:00 | NUR ---
RN NOTE: MEDICATION REFUSAL PATIENT REFUSED SCHEDULED MEDS FOR TONIGHT MACROBID AND LIPITOR. DESPITE OF EDUCATION PROVIDED REGARDING THE IMPORTANCE OF MEDICATION COMPLIANCE. PATIENT CONTINUED TO REFUSE. PATIENT STATED IN SERBIAN, "NO MEDICINA, THANK YOU". WILL CONTINUE TO MONITOR.
[2022-06-05 08:00] VITALS: BP 124/61
--- NOTE | 2022-06-05 08:04 | NUR ---
SW Discharge Note: Patient will be discharged to a locked fdc facility to [facility] [address] [place] [address]; ([phone]). Please arrange ambulance transportation. Mattress Inspector spoke with Gege, Scoop Driver at [facility]; ([phone]), who stated patient will be accepted at facility today. Patient is alert and oriented x1, and is not able to plan for self-care at this time, but is willing to accept care provided for her at the facility. Patient denies any suicidal or homicidal ideations. Patient is aware and agreeable with discharge plans. SW attempted to contact jeremiah Rogers ([phone]) and was unable to leave a voicemail. Patient will continue to follow-up with her (Psychiatrist) Dr. Gtz [address] [facility] [address], [place] [address]; ([phone]) and [employer] Equipment Repairer Dr. Britton [address] [facility] [address], [place] [address]; ([phone]). Patient presents with euthymic mood and congruent affect.
[2022-06-05] MEDS: ASPIRIN 81 MG TAB.CHEW PO SCH (08:24)
[2022-06-05] MEDS: NITROFURANTOIN/MONOHYDRATE MACROCRYSTALS 100 MG CAPSULE PO SCH (08:24)
[2022-06-05] MEDS: DIVALPROEX SODIUM 125 MG CAP.SPRINK PO SCH ×2 (08:24→12:34)
[2022-06-05] MEDS: risperiDONE-M 0.5 MG TAB.RAPDIS PO SCH (08:24)
[2022-06-05] MEDS: CYANOCOBALAMIN 500 MCG TABLET PO SCH (08:25)
[2022-06-05] MEDS: ENSURE ENLIVE CHOC 237 ML CAN PO SCH (08:25)
--- NOTE | 2022-06-05 15:50 | NUR ---
Discharge Note: Patient discharged to a locked long term facility; [facility] [address] [place] [address]; ([phone]). Patients vitals normal and stable. Patient cooperative and courteous with transportation personnel. Ambulance transport and received all copies and property of patient. Report given to DANE Valladares at [facility]. Med Recon completed and packet provide to SNF.
== END 2022-06-05 15:40 | DRG 885 ==
LOC: ER 20:02 → GPS 05-16 00:26
PROVIDERS: ADMIT Psychiatry & Neurology Psychosomatic Medicine; ATTEND Registered Nurse
DX: F31.64 Bipolar disorder, current episode mixed, severe, with psychotic features (principal); N39.0 Urinary tract infection, site not specified; F03.92 Unspecified dementia, unspecified severity, with psychotic disturbance; F03.93 Unspecified dementia, unspecified severity, with mood disturbance; F03.94 Unspecified dementia, unspecified severity, with anxiety; Z91.14 Patient's other noncompliance with medication regimen; Z88.6 Allergy status to analgesic agent; Z91.041 Radiographic dye allergy status; Z73.6 Limitation of activities due to disability; E78.5 Hyperlipidemia, unspecified; R26.9 Unspecified abnormalities of gait and mobility
CPT/HCPCS: 36415; 80048-TC; 80053-TC; 80061-TC; 80076-TC; 80164-TC; 81001; 82565-TC; 82962-TC; 85025-TC; 87081-TC; 87086-TC; C9803; G0480; J2426; J3490